=== PATIENT | male | born 1950 | race Caucasian/White ===

== ENCOUNTER 2016-02-16 04:27 | Inpatient (IN) | payer OTHER ==
[~2016-02-16] VITALS: Ht 172.7 cm; Wt 106.5 kg
[~2016-02-16 04:27] MED LIST: ACTOS30 MG PO; ALDACTONE100 MG PO; AMARYL4 MG PO; ASPERCREME76.5 GM TP; Actigall PO; Amaryl PO; B-121000 MC1 SL; B-121000 MC2 PO; BUMEX1 MG PO; BUMEX2 MG PO; Bumex PO; CEFTIN500 MG PO; CONSTULOSE10 GM/15 M PO; CORGARD20 MG PO; Chronulac,Cephulac,E PO; Corgard PO; FISH OIL 1,0001 EAC7 PO; FISH OIL300 MG PO; Fish Oil PO; GABAPENTIN300 MG PO; GLIMEPIRIDE4 MG PO; GUMMI BEAR MUL1 EACH PO; ILOTYCIN1 GM RIGHT EYE; INVOKANA100 MG PO; IRON 100-VITAM1 EACH PO; K-DUR10 MEQ PO; K-Dur PO; KEFLEX500 MG PO; LACTULOSE10 GM/151 PO; LANSOPRAZOLE30 MG PO; Levothroid,Synthroid PO; MULTIVITAMIN1 EAC2 PO; NADOLOL20 MG PO; NEURONTIN100 MG PO; Neurontin PO; ONGLYZA5 MG PO; OSENI PO; POLYETHYLENE GL17 GM PO; PREVACID30 MG PO; Protonix PO; ROPINIROLE HCL2 M1 PO; SYNTHROID200 MCG PO; TAMSULOSIN HCL0.4 MG PO; THERAGRAN1 TABLET PO; TRADJENTA5 MG PO; TRAMADOL HCL50 MG PO; TYLENOL EXTRA500 MG PO; TYLENOL REGULA325 MG PO; TYLENOL WITH C1 EACH PO; ULTRAM50 MG PO; URSODIOL300 MG PO; VITAMIN B-12500 MC5 SL; VITAMIN D-32000 UNI2 PO; VITAMIN D2000 UNI1 PO; VITAMIN D31000 UNIT PO; VITAMIN D32000 UNIT PO; Vitamin D PO; WELCHOL625 MG PO; XIFAXAN550 MG PO; Xifaxan PO; [UNRECOGNIZED DRUG - OTHER] PO; [UNRECOGNIZED DRUG - OTHER] PO
[2016-02-16 04:49] LABS: BASE EXCESS 2.6 mEq/L (-3 to +3); BICARBONATE 26.2 mEq/L (22-26); CARBOXY HGB 1.7 % (0-5); COMMENTS - BLOOD GASES C+A+; DEVICE ROOM AIR; METHEMOGLOBIN 0.9 % (0-1.5); PCO2 36 mm Hg (35-45); PO2 100 mm Hg (80-100); SITE LR; pH 7.47 (7.35-7.45)
[2016-02-16 05:13] LABS: ADD MIUA? NO; BILIRUBIN NEGATIVE; BLOOD NEGATIVE; COLOR DK YELLOW ((YELLOW)); GLUCOSE (STRIP) >=1000; KETONES NEGATIVE; LEUKOCYTES NEGATIVE; NITRITE NEGATIVE; PROTEIN (STRIP) NEGATIVE; SPECIFIC GRAVITY 1.027 (1.000-1.030); UCUL ADDED? NO; UROBILINOGEN 0.2 MG/DL (0.2-1.0)
[2016-02-16 06:06] LABS: INTER. NORMALIZED RATIO 1.5; PROTHROMBIN TIME 15.6 (9.2-11.2); PTT 32.8 (25-32)
[2016-02-16 06:07] LABS: CHLORIDE 105 mEq/L (99-109); POTASSIUM 4.1 mEq/L (3.7-5.4); SODIUM 138 mEq/L (136-147)
[2016-02-16 06:09] LABS: GLUCOSE 134 mg/dL (70-99)
[2016-02-16 06:10] LABS: ANION GAP 12 MEQ/L (2-14)
[2016-02-16 06:11] LABS: TOTAL BILIRUBIN 2.8 mg/dL (0.0-1.0)
[2016-02-16 06:12] LABS: ALKALINE PHOSPHATASE 81 IU/L (3-129)
[2016-02-16 06:13] LABS: GFR ESTIMATE (CALCULATED) 50 mL/min/
[2016-02-16 06:14] LABS: UREA NITROGEN (BUN) 25 mg/dL (9-23)
[2016-02-16 06:16] LABS: LIPASE 87 U/L (1.0-51.0)
[2016-02-16 06:18] LABS: TROP-I INTERPRETATION NEGATIVE; TROPONIN-I < 0.01 ng/mL (0.0-0.30)
[2016-02-16 06:26] LABS: HEMATOCRIT 33.6 % (38.0-50.0); MCH 32.2 PG (29.0-34.0); MCHC 34.2 G/DL (30.0-36.0); MCV 94.1 FL (86-99); RBC DIS.WIDTH-CV 16.1 % (11.8-14.6); RBC DIS.WIDTH-SD 53.1 % (39-53); RED BLOOD COUNT 3.57 M/uL (4.00-5.50); WHITE BLOOD COUNT 2.5 K/uL (4.1-10.2)
[2016-02-16 08:02] LABS: HEMATOLOGY COMMENT 1 REV
[2016-02-16 08:05] LABS: MEAN PLAT.VOLUME 12.3 uM^3 (9.0-12.4); PLATELET COUNT 35 K/uL (156-360)
[2016-02-16 17:02] VITALS: BP 130/72
[2016-02-16 19:37] VITALS: BP 128/66
[2016-02-16 21:31] LABS: POINT-OF-CARE METER ID UU14174225
[2016-02-17] VITALS (7 sets, daily range): BP systolic 114–156; BP diastolic 56–76
[2016-02-17 07:41] LABS: ALKALINE PHOSPHATASE 58 IU/L (3-129); ANION GAP 7 MEQ/L (2-14); CHLORIDE 105 MEQ/L (99-109); GFR ESTIMATE (CALCULATED) > 59 mL/min/; LIPASE 65 U/L (1.0-51.0); POTASSIUM 3.8 MEQ/L (3.7-5.4); SAMPLE HEMOLYSIS CHECK 0; SAMPLE ICTERIC CHECK 1; SAMPLE LIPEMIA CHECK 0; SODIUM 135 MEQ/L (136-147); TOTAL BILIRUBIN 3.7 MG/DL (0.0-1.0); UREA NITROGEN (BUN) 26 mg/dL (9-23)
[2016-02-17 07:43] LABS: GLUCOSE 83 mg/dL (70-99)
[2016-02-18 04:15] VITALS: BP 121/70
[2016-02-18 07:22] LABS: HEMATOCRIT 29.9 % (38.0-50.0); MCH 32.3 PG (29.0-34.0); MCHC 34.4 G/DL (30.0-36.0); MCV 93.7 FL (86-99); RBC DIS.WIDTH-CV 16.3 % (11.8-14.6); RBC DIS.WIDTH-SD 56.2 % (39-53); RED BLOOD COUNT 3.19 M/uL (4.00-5.50); WHITE BLOOD COUNT 2.5 K/uL (4.1-10.2)
[2016-02-18 07:48] LABS: ANION GAP 7 MEQ/L (2-14); CHLORIDE 105 MEQ/L (99-109); GFR ESTIMATE (CALCULATED) > 59 mL/min/; GLUCOSE 80 mg/dL (70-99); POTASSIUM 3.7 MEQ/L (3.7-5.4); SAMPLE HEMOLYSIS CHECK 0; SAMPLE ICTERIC CHECK 1; SAMPLE LIPEMIA CHECK 0; SODIUM 134 MEQ/L (136-147); UREA NITROGEN (BUN) 26 mg/dL (9-23)
[2016-02-18 08:00] VITALS: BP 117/64
[2016-02-18 08:11] LABS: POINT-OF-CARE METER ID UU14174225
[2016-02-18 08:51] LABS: EOSINOPHIL (%) 2.8 % (0-5); EOSINOPHIL COUNT 0.1 K/uL (0-0.3); LYMPHOCYTE COUNT 0.6 K/uL (1.0-2.8); MEAN PLAT.VOLUME 11.7 uM^3 (9.0-12.4); MONOCYTE (%) 9.3 % (3-12); MONOCYTE COUNT 0.2 K/uL (0-0.8); NEUTROPHIL (%) 62.3 % (45-76); NEUTROPHIL COUNT 1.5 K/uL (1.8-6.4); PLAT.SUFFICIENCY DECREASED; PLATELET COUNT 33 K/uL (156-360); USER ID SDF
[2016-02-18 12:00] VITALS: BP 120/65
[2016-02-18 16:00] VITALS: BP 136/69
[2016-02-18 20:28] VITALS: BP 117/85
[2016-02-18 21:43] LABS: POINT-OF-CARE METER ID UU14174225
[2016-02-19 00:44] VITALS: BP 129/69
[2016-02-19 04:37] VITALS: BP 130/65
[2016-02-19 08:00] VITALS: BP 113/64
[2016-02-19 11:53] VITALS: BP 133/65
[2016-02-19 15:43] VITALS: BP 131/64
[2016-02-19 19:27] VITALS: BP 122/56
[2016-02-20 00:31] VITALS: BP 111/60
[2016-02-20 03:49] VITALS: BP 117/63
[2016-02-20 07:59] VITALS: BP 121/59
[2016-02-20 12:09] LABS: ALKALINE PHOSPHATASE 74 IU/L (3-129); ANION GAP 8 MEQ/L (2-14); CHLORIDE 105 MEQ/L (99-109); GFR ESTIMATE (CALCULATED) > 59 mL/min/; POTASSIUM 3.3 MEQ/L (3.7-5.4); SAMPLE HEMOLYSIS CHECK 0; SAMPLE ICTERIC CHECK 1; SAMPLE LIPEMIA CHECK 0; SODIUM 134 MEQ/L (136-147); TOTAL BILIRUBIN 3.5 MG/DL (0.0-1.0); UREA NITROGEN (BUN) 26 mg/dL (9-23)
[2016-02-20 12:11] LABS: GLUCOSE 155 mg/dL (70-99)
[2016-02-20 15:44] VITALS: BP 115/59
[2016-02-20 16:21] LABS: POINT-OF-CARE METER ID UU14174225
[2016-02-21] VITALS: BP 128/65
[2016-02-21 06:39] LABS: HEMATOCRIT 30.3 % (38.0-50.0); MCHC 34.3 G/DL (30.0-36.0); MCV 93.2 FL (86-99); RBC DIS.WIDTH-CV 16.1 % (11.8-14.6); RBC DIS.WIDTH-SD 55.4 % (39-53); RED BLOOD COUNT 3.25 M/uL (4.00-5.50)
[2016-02-21 07:08] LABS: EOSINOPHIL (%) 4.6 % (0-5); EOSINOPHIL COUNT 0.1 K/uL (0-0.3); IMMATURE GRANULOCYTE (%) 0.3 % (0.0-0.7); LYMPHOCYTE COUNT 0.8 K/uL (1.0-2.8); MONOCYTE (%) 12.8 % (3-12); MONOCYTE COUNT 0.4 K/uL (0-0.8); NEUTROPHIL COUNT 1.7 K/uL (1.8-6.4)
[2016-02-21 07:17] LABS: PLAT.SUFFICIENCY DECREASED; PLATELET COUNT 43 K/uL (156-360); USER ID CCL
[2016-02-21 07:41] LABS: ALKALINE PHOSPHATASE 68 IU/L (3-129); ANION GAP 9 MEQ/L (2-14); CHLORIDE 110 MEQ/L (99-109); GFR ESTIMATE (CALCULATED) > 59 mL/min/; MAGNESIUM 1.9 mg/dl (1.3-2.7); SAMPLE HEMOLYSIS CHECK 0; SAMPLE ICTERIC CHECK 1; SAMPLE LIPEMIA CHECK 0; SODIUM 138 MEQ/L (136-147); TOTAL BILIRUBIN 3.2 MG/DL (0.0-1.0); UREA NITROGEN (BUN) 23 mg/dL (9-23)
[2016-02-21 07:51] LABS: GLUCOSE 54 mg/dL (70-99)
[2016-02-21 08:00] VITALS: BP 127/68
[2016-02-21 12:00] VITALS: BP 117/57
[2016-02-21 16:00] VITALS: BP 119/50
[2016-02-21] MEDS ORDERED: K-DUR20 MEQ PO (17:39)
[2016-02-21] MEDS ORDERED: BISACODYL5 MG PO (17:39)
== END 2016-02-21 18:20 | disposition home or self-care (01) | DRG 442 ==
LOC: EME → EDBD 04:27 → EDOF 07:04 → 5SOUTH 07:04
PROVIDERS: Emergency Medicine; Hospitalist; Internal Medicine
DX: K72.90 Hepatic failure, unspecified without coma (principal); K74.69 Other cirrhosis of liver; Z76.82 Awaiting organ transplant status; K56.7 Ileus, unspecified; K59.00 Constipation, unspecified; N17.9 Acute kidney failure, unspecified; D61.818 Other pancytopenia; I12.9 Hypertensive chronic kidney disease with stage 1 through stage 4 chronic kidney disease, or unspecified chronic kidney disease; N18.2 Chronic kidney disease, stage 2 (mild); E11.9 Type 2 diabetes mellitus without complications; E03.9 Hypothyroidism, unspecified; G47.30 Sleep apnea, unspecified
CPT/HCPCS: 36600; 70450; 74022; 74176; 76705; 80048; 80053; 81003; 82140; 82803; 82948; 83605; 83690; 83735; 84484; 85025; 85027; 85610; 85730; 86850; 86900; 86901; 87040; 93005; 99281; 99285; J1650; J1815